=== PATIENT | female | born 1945 | race Caucasian/White ===

== ENCOUNTER 2016-12-11 14:39 | Emergency (ER) | payer MEDICARE, OTHER ==
[2016-12-11] MEDS ORDERED: ONDANSETRON ODT 4 MG TAB.RAPDIS ONE (15:31)
[2016-12-11] MEDS ORDERED: ACETAMINOPHEN 325 MG TABLET PO ONE (15:37)
[2016-12-11] MEDS ORDERED: IBUPROFEN 600 MG TABLET PO ONE (15:37)
--- NOTE | 2016-12-11 16:27 | ER NURSING DOCUMENTATION ---
Nurse's Notes [facility] Name:Lindsey Shelton Age:71 yrs Sex:Female :1945 Arrival Date:12/11/2016 Time:14:39 Bed6 Private MD:Damaris Hernandez Diagnosis:Distal Ulna Fracture Presentation: 12/11 14:41 Acuity: AILYN 3 rh 14:53 Presenting complaint: Patient states: Pt was [place] the park, tripped and fell onto rh some rocks. Pt did not lose consciousness. Pt hit her left knee, right arm and on of her teeth on the rocks. Pt has skinned left knee. Transition of care: Home. 14:53 Method Of Arrival: Private Vehicle Triage Assessment: 14:54 General: Appears in no apparent distress, Behavior is cooperative. Pain: Complains of rh pain in dorsal aspect of right forearm and left knee. EENT: Oral mucosa is moist. Neuro: Level of Consciousness is awake, alert, obeys commands, Oriented to person, place, time, event. Cardiovascular: Capillary refill < 3 seconds Chest pain is denied. Respiratory: Airway is patent Respiratory effort is even, unlabored, Respiratory pattern is regular, symmetrical, Denies shortness of breath. GI: Abd is soft and non tender X 4 quads. : No deficits noted. Derm: Skin is intact, is healthy with good turgor, Skin is pink, warm & dry. Musculoskeletal: Circulation, motion, and sensation intact Range of motion intact in all extremities. Injury Description: Abrasion sustained to left knee is bleeding, was sustained 2-4 hours ago. Historical: - Allergies: No known drug Allergies; - Home Meds: 1. Lipitor Oral 2. atorvastatin oral 3. Nexium Oral 4. Lisinopril Oral 5. Advair Diskus Inhl - PMHx: Hypertension; Asthma; HIGH CHOLESTEROL; - PSHx: RIGHT HAND; - Tetanus: < 10 years. - Ebola Screening: : Patient negative for fever greater than or equal to 101.5 degrees Fahrenheit, and additional compatible Ebola Virus Disease symptoms. - Immunization history: Flu Vaccine < 1 year. - Social history: Smoking status: Patient states was never smoker of tobacco. Screenin:56 Infectious Disease Risk None. Abuse screen: Denies threats or abuse. Denies injuries rh from another. Nutritional screening: No deficits noted. Assessment: 14:56 See Triage Assessment done by same RN. rh Vital Signs: 14:55 BP 167 / 70; Pulse 65; Resp 17; Temp 98.7; Pulse Ox 95% on R/A; Weight 72.57 kg; Height rh 5 ft. 6 in. (167.64 cm); Pain 5/10; 14:55 Body Mass Index 25.82 (72.57 kg, 167.64 cm) rh ED Course: 14:40 Patient arrived in ED. ma1 14:40 Damaris Hernanedz MD is Private Physician. ma1 14:41 Triage completed. rh 14:52 Radha Rice is Primary Nurse. rh 14:56 Notified ED Physician of patient's arrival and chief complaint. Dr. Sherman notified. rh Affected limb iced. Affected limb elevated. 14:56 Valuables Remains with patient Patient has correct armband on for positive rh identification. Bed in low position. Call light in reach. Side rails up X 1. Warm blanket given. Pillow given. Family accompanied patient. 14:56 Wound care to abrasion, located on left knee was cleaned with soap and water, Patient rh tolerated well. 15:02 Javi Sherman MD is Attending Physician. tl1 16:05 Ulnar gutter splint applied on right forearm. Sling applied to left arm. rh 16:06 Assist Provider Splinting. rh 16:22 Colin Garza MD is Referral Physician. tl1 Administered Medications: 15:22 Not Given (Patient Refused): Vicodin (5 mg-500 mg) 1 tabs PO once rh 15:22 Not Given (Patient Refused): Zofran 4 mg PO once rh 15:26 Drug: Ibuprofen 600 mg; Route: PO; rh 16:00 Follow up: Response: Pain is decreased rh 15:26 Drug: Tylenol 975 mg; Route: PO; rh 16:00 Follow up: Response: Pain is decreased rh Outcome: 16:23 Discharge ordered by . tl1 16:27 Discharged to home ambulatory, with significant other. rh 16:27 Condition: improved 16:27 Discharge Assessment: Patient awake, alert and oriented x 3. No cognitive and/or functional deficits noted. Patient verbalized understanding of disposition instructions. GOOD CMS ON THE RIGHT ARM WITH SPLINT 16:27 Discharge instructions given to patient, significant other, Instructed on discharge instructions, follow up and referral plans. 16:27 Patient left the ED. Signatures: Abad Pardo Tom, MD MD tl1 Radha Rice Tessa Rosenberg [facility]
--- NOTE | 2016-12-11 16:27 | ER PHYSICIAN DOCUMENTATION ---
Physician Documentation [facility] Name:Lindsey Shelton Age:71 yrs Sex:Female :1945 Arrival Date:12/11/2016 Time:14:39 Bed6 Private MD:Damaris Hernandez ED, Tom Disposition: 12/11 16:30 Chart complete. tl1 Disposition: 12/11/16 16:23 Discharged to Home/Self Care. Impression: Distal Ulna Fracture. - Condition is Good. - Discharge Instructions: FRACTURE, Upper Extremity. - Medical Reconciliation form form. - Follow up: Colin Garza MD; When: 4- 6 days; Reason: Recheck today's complaints, Continuance of care. - Problem is new. - Symptoms have improved. HPI: 15:00 This 71 yrs old Female presents to ER via Private Vehicle with complaints of tl1 right forearm pain. 15:00 Onset: The symptom(s)/episode began/occurred suddenly, just prior to arrival. tl1 Associated injuries: The patient sustained palmar aspect of right forearm. Associated signs and symptoms: Pertinent negatives: abdominal pain, chest pain, headache, incontinence, memory problems, nausea, numbness, pelvic pain, shortness of breath, tingling, weakness. She landed on her right ulna, on top of a rock and has pain there now. No other complaint.. Historical: - Allergies: No known drug Allergies; - Home Meds: 1. Lipitor Oral 2. atorvastatin oral 3. Nexium Oral 4. Lisinopril Oral 5. Advair Diskus Inhl - PMHx: Hypertension; Asthma; HIGH CHOLESTEROL; - PSHx: RIGHT HAND; - Tetanus: < 10 years. - Ebola Screening: : Patient negative for fever greater than or equal to 101.5 degrees Fahrenheit, and additional compatible Ebola Virus Disease symptoms. - Immunization history: Flu Vaccine < 1 year. - Social history: Smoking status: Patient states was never smoker of tobacco. ROS: 15:10 MS/extremity: Positive for injury or acute deformity, of the palmar aspect of right tl1 forearm. 15:10 All other systems are negative. Exam: 15:10 Constitutional: This is a well developed, well nourished patient who is awake, alert, tl1 and in no acute distress. 15:10 Head/Face: Normocephalic, atraumatic. tl1 15:10 Cardiovascular: Rate: normal. 15:10 Respiratory: Respirations: normal. 15:10 Musculoskeletal/extremity: Extremities: grossly normal except: noted in the palmar aspect of right forearm: 15:10 Skin: Exam negative for acute changes. 15:10 Neuro: Orientation: is normal, Mentation: is normal, Cranial nerves: grossly normal, Motor: moves all fours. Vital Signs: 14:55 BP 167 / 70; Pulse 65; Resp 17; Temp 98.7; Pulse Ox 95% on R/A; Weight 72.57 kg; Height rh 5 ft. 6 in. (167.64 cm); Pain 5/10; 14:55 Body Mass Index 25.82 (72.57 kg, 167.64 cm) rh Procedures: 15:10 Splinting: Splint applied to right wrist, right hand and palmar aspect of right forearm tl1 using Orthoglass splint, applied by myself. Examined by me, post splint application: neurovascular intact, Patient tolerated well. MDM: 15:02 Patient medically screened. tl1 15:10 Data reviewed: vital signs, nurses notes, radiologic studies, plain films, and as a tl1 result, I will discharge patient. Counseling: I had a detailed discussion with the patient and/or guardian regarding: the historical points, exam findings, and any diagnostic results supporting the discharge/admit diagnosis, radiology results, the need for outpatient follow up, to return to the emergency department if symptoms worsen or persist or if there are any questions or concerns that arise at home. Physician consultation: Colin Garza MD was called at 15:40, was contacted at 15:45, regarding patient's condition, outpatient follow-up, next week, and will see patient in office, next week. 12/13 15:17 Order name: CHEST; SINGLE VIEW [id number] EDPA 12/13 15:17 Order name: FOREAM; [address] [place] [id number] EDPA 12/11 14:56 Order name: Wound Care; Complete Time: 14:56 rh 12/11 14:58 Order name: ORTHO: Ice Pack; Complete Time: 14:58 rh 12/11 16:05 Order name: ORTHO: Arm Sling; Complete Time: 16:05 rh Dispensed Medications: 15:22 Not Given (Patient Refused): Vicodin (5 mg-500 mg) 1 tabs PO once rh 15:22 Not Given (Patient Refused): Zofran 4 mg PO once rh 15:26 Drug: Ibuprofen 600 mg; Route: PO; rh 16:00 Follow up: Response: Pain is decreased rh 15:26 Drug: Tylenol 975 mg; Route: PO; rh 16:00 Follow up: Response: Pain is decreased rh Signatures: Javi Sherman MD MD 1 Radha Rice
--- NOTE | 2016-12-13 14:32 | RADIOLOGY REPORT ---
A limited single portable view of the chest demonstrates the heart, vessels and lungs to be unremarkable. No infiltrate, fluid or pneumothorax is seen. IMPRESSION: Unremarkable limited single portable view of the chest. MTDD
--- NOTE | 2016-12-13 14:34 | RADIOLOGY REPORT ---
Two views of the right forearm demonstrate an oblique mid shaft fracture of the right ulna with approximately 5 mm of radial displacement. The radius appears intact. Limited images of the joints appear unremarkable. IMPRESSION: Minimally displaced mid shaft fracture of the right ulna. MTDD
== END 2016-12-11 16:27 | disposition home or self-care (01) ==
LOC: ER 14:39
DX: S52.601A Unspecified fracture of lower end of right ulna, initial encounter for closed fracture (principal); S80.212A Abrasion, left knee, initial encounter; W01.0XXA Fall on same level from slipping, tripping and stumbling without subsequent striking against object, initial encounter; Y92.838 Other recreation area as the place of occurrence of the external cause; Y93.01 Activity, walking, marching and hiking; I10 Essential (primary) hypertension; Z79.899 Other long term (current) drug therapy
CPT/HCPCS: 29125; 71010; 99282; 99283

== ENCOUNTER 2016-12-18 08:48 | Day surgery (SDC) | payer MEDICARE ==
[~2016-12-18 08:48] MED LIST: ceFAZolin 1 GM in NORMAL SALINE MINI-BAG+ 100 ML IV PRN
[2016-12-18] MEDS ORDERED: ceFAZolin 1 GM in NORMAL SALINE MINI-BAG+ 100 ML IV PRN ×2 (09:10→11:07)
[2016-12-18] MEDS ORDERED: MIDAZOLAM HCL 2 MG/2 ML SYR IV PRN ×2 (09:10→11:07)
[2016-12-18] MEDS ORDERED: LIDOCAINE HCL 1% 20 ML VIAL SUBCUT PRN ×2 (09:10→11:07)
[2016-12-18] MEDS ORDERED: BUPIVACAINE/EPI 0.25% 1 VIAL VIAL ONE (09:13)
[2016-12-18] MEDS ORDERED: FAMOTIDINE IN SALINE, ISO-OSM 20 MG/50 ML PIGGYBACK IV SCH ×2 (09:15→11:07)
[2016-12-18] MEDS ORDERED: ACETAMINOPHEN 1,000 MG/100 ML VIAL IV SCH ×2 (09:15→11:07)
[2016-12-18] MEDS ORDERED: ONDANSETRON HCL 4 MG/2 ML VIAL ONE (09:22)
[2016-12-18] MEDS ORDERED: FENTANYL 100 MCG/2 ML VIAL ONE (09:22)
[2016-12-18] MEDS ORDERED: DEXAMETHASONE 4 MG/ML VIAL ONE (09:23)
[2016-12-18] MEDS ORDERED: MIDAZOLAM HCL 2 MG/2 ML VIAL ONE (09:26)
[2016-12-18] MEDS ORDERED: BACITRACIN 50,000 UNITS VIAL IM ONE (09:26)
[2016-12-18] MEDS ORDERED: BACITRACIN 14 APP/14 GM TUBE TOPICAL ONE (09:27)
[2016-12-18] MEDS ORDERED: NORMAL SALINE FLUSH 30 ML ONE (09:27)
[2016-12-18] MEDS ORDERED: LACTATED RINGERS 1,000 ML IV SCH ×3 (10:00→11:07)
[2016-12-18] MEDS ORDERED: ONDANSETRON HCL 4 MG/2 ML VIAL IV PRN (11:07)
[2016-12-18] MEDS ORDERED: MORPHINE SULFATE 10 MG/ML SYR IV PRN (11:07)
[2016-12-18] MEDS ORDERED: FENTANYL 100 MCG/2 ML VIAL IV PRN (11:07)
[2016-12-18 11:36] VITALS: RESP 16; TEMP 97
--- NOTE | 2016-12-18 11:58 | RADIOLOGY REPORT ---
Two limited views of the right forearm from the C-Arm in the operating room are compared with prior films dated 12/11/2016. There has been interval open reduction and internal fixation of the ulnar shaft fracture, which is secured with a plate and multiple screws. No other change is identified. IMPRESSION: Interval open reduction and internal fixation of the right ulnar shaft fracture. [facility]
[2016-12-18 12:38] VITALS: PULSE 55
[2016-12-18 12:41] VITALS: BP 124/62; O2SAT 93
--- NOTE | 2016-12-18 16:31 | OPERATIVE REPORT ---
DATE OF SURGERY: 12/18/16 SURGEON: Krishna Powell DO ANESTHESIA: General. PREOPERATIVE DIAGNOSIS: Right ulna fracture. POSTOPERATIVE DIAGNOSIS: Right ulna fracture. OPERATION PERFORMED: Right ulna open reduction, internal fixation. ESTIMATED BLOOD LOSS: Minimal. TOTAL TOURNIQUET TIME: 68 minutes. PROCEDURE NOTE: The patient was brought to the operating room suite and after administration of general anesthesia. The right upper extremity was prepped and draped in sterile fashion. The incision site was injected with 0.25% bupivacaine with epinephrine prior to incision. The incision was made directly over the fracture site along the border of the ulna. Dissection was carried down and the flexor and extensor interval was entered by incising the fascia and the bone was immediately deep with some limited periosteal striping around the fracture site. The fracture was actually comminuted with 4 parts total. It was reduced to a plate and the proximal aspect of the plate had 2 screws inserted after predilling and measuring. For optimal reduction of this fracture pattern and for fixation of the part the plate was placed on the volar aspect of the ulna. The distal part was then reduced to the plate and ulna and was also predrilled, measured and locked into place with both locking and nonlocking screws. The fracture site area was copiously irrigated with bacitracin infused normal saline and demineralized bone matrix was packed in and around the fracture site. No small bleeders were encountered so no electrocautery was utilized for this case. The fascia was closed with 0 Vicryl followed by 3-0 Vicryl subcutaneously followed by 3-0 nylon at the level of the skin and modified horizontal mattress suture. Four layers were closed including fascia, superficial fat, fatty fascia subcutaneous layer followed by nylon at the level of the skin. The patient was taken from the OR suite to the recovery room in stable condition after applying sterile dressing with bacitracin ointment, Xeroform, 4x4s, ABDs, cast padding and a Sugartong splint which was well-padded in plaster and wrapped with an Elie bandage. Fluoroscopic imaging was also utilized through the case. JUNITO
--- NOTE | 2016-12-21 14:52 | PREOPERATIVE H&P ---
History of Present Illness (Krishna Powell DO; 12/14/2016 12:56 PM) The patient is a 71 year old female. Patient presents complaining of right forearm pain after tripping and falling 3 days ago. She was seen in emergency room and was placed in a splint. She also relates a history of fracture of her ipsilateral hand and ipsilateral carpal tunnel with some residual numbness in her fingers and occasional coldness. Problem List/Past Medical (Krishna Powell DO; 12/14/2016 12:56 PM) Asthma with exacerbation (493.92) (J45.901) Esophageal reflux (530.81) Hyperlipidemia (272.4) (E78.5) Allergies (Krihsna Powell DO; 12/14/2016 12:56 PM) NKA Family History (Krishna Powell DO; 12/14/2016 12:56 PM) Mother at 77; CAD onset in 60's, +TOB Father at 76; DM, CAD, +TOB Brother CVA at 59 Social History (Krishna Powell DO; 12/14/2016 12:56 PM) Non Smoker/No Tobacco Use quit 73, less than 6 pk yr hx Alcohol Use 1/d Marital status partner; Yojana Liebing Past Surgical History (Krishna Powell DO; 12/14/2016 12:56 PM) Hysterectomy; Abdominal Review of Systems (Krishna Powell DO; 12/14/2016 12:56 PM) General Not Present- Chills and Fever. Skin Not Present- Erythema, Skin Color Changes and Skin Problems. HEENT Not Present- Sleep Apnea. Neck Not Present- Neck Pain. Respiratory Not Present- Cough and Shortness of Breath. Cardiovascular Not Present- Chest Pain, Difficulty Breathing On Exertion, Fainting and Leg Pain and/or Swelling. Gastrointestinal Not Present- Abdominal Pain, Nausea and Vomiting. Female Genitourinary Not Present- Painful Urination. Musculoskeletal Not Present- Decreased Range of Motion, Joint Pain, Joint Stiffness, Joint Swelling, Muscle Pain and Muscle Weakness. Neurological Not Present- Dizziness, Focal Neurological Symptoms, Numbness in extremities, Trouble walking and Weakness. Psychiatric Not Present- Anorexia, Anxiety and Depression. Endocrine Not Present- Weight Loss. Hematology Not Present- Bleeding Problems, DVT and Easy Bruising. Vitals (Krishna Powell DO; 12/14/2016 12:57 PM) 12/14/2016 12:56 PM Resp.: 16 (Unlabored) BP: 136/88 (Sitting, Left Arm, Standard) Physical Exam (Krishna Powell DO; 12/14/2016 1:00 PM) Physical examination of the right arm demonstrates a well molded splint. The peripheral neurovascular status is intact with adequate perfusion and slight diminished sensation which is the patient's baseline. Motor is grossly intact in the fingers and wrist. No pain with elbow motion. Positive tenderness to palpation over the fracture site. Plain film x-rays with orthogonal views demonstrate an oblique, displaced, angulated and rotated fracture of the shaft of the ulna. Assessment & Plan (Krishna Powell DO; 12/14/2016 1:00 PM) Closed displaced oblique fracture of shaft of right ulna, initial encounter ( S52.458A) Impression: After educating the patient regarding treatment options with their associated risks and benefits, the patient elected to proceed with surgical treatment of the injury/pathology with RIGHT ULNA OPEN REDUCTION INTERNAL FIXATION. The risks and benefits of the specific procedure were explained and all questions and concerns were addressed and answered. Post operative rehabilitation requirements and expectations for optimal outcome were reviewed and the patient confirmed understanding these and committed to compliance. All questions answered. The patient will be optimized medically by consultation with their primary care physician prior to their procedure. Signed by Krishna Powell DO (12/14/2016 1:01 PM) There are no interval changes. Signed Krishna Powell DO 12/18/2016. JUNITO
== END 2016-12-18 12:58 | disposition home or self-care (01) ==
LOC: SDS 08:48
PROVIDERS: ATTEND Orthopaedic Surgery
DX: S52.231A Displaced oblique fracture of shaft of right ulna, initial encounter for closed fracture (principal); W01.0XXA Fall on same level from slipping, tripping and stumbling without subsequent striking against object, initial encounter; E78.5 Hyperlipidemia, unspecified; I10 Essential (primary) hypertension; Z79.899 Other long term (current) drug therapy
CPT/HCPCS: 76001; C1713; J0690; J1170; J2250; J2405; J3010